=== PATIENT | female | born 1985 | race Caucasian/White ===

== ENCOUNTER 2021-11-24 13:50 | Emergency (ER) | payer OTHER, SELFPAY ==
--- NOTE | ~2021-11-24 | XR_ITS ---
EXAMINATION: XR foot RT 2V INDICATION: Right foot pain and swelling TECHNIQUE: Two views of the right foot are obtained. COMPARISON: 12/12/2009 FINDINGS: There is dorsal soft tissue swelling of the foot overlying the metatarsals. No fracture is identified. Bone alignment is normal. 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 IMPRESSION: 1. Dorsal soft tissue swelling of the foot without acute osseous abnormality. Reviewed, dictated and finalized at location A.
--- NOTE | 2021-11-24 15:02 | ED_ITS ---
HPI - Extremity Injury (Lower) General Stated Complaint: WOUND ON TOE HIGH BLOOD PRESSURE Source: patient Mode of arrival: ambulatory History of Present Illness HPI Narrative: this is a 36-year-old female with no significant past medical hi story presents with abscess of the anterior surface of her right foot with some yellow drainage has good range of motion no numbness or tingling no tracking of the wound no fever chills. MD complaint: foot injury ( abscess anterior surface of right foot) Onset (ago): week(s) Severity: moderate Related Data Allergies Allergy/AdvReac Type Severity Reaction Status Date / Time No Known Allergies Allergy Mild Unverified 07/23/06 08:50 Review of Systems Review of Systems: All systems reviewed & are unremarkable except as noted in HPI and below PMFSH Past Medical History Medical History Patient denies medical problems Exam Const: General: no acute distress Orientation/consciousness: patient oriented x3 HENMT: Head: normal to inspection Eyes: Conjunctivae: conjunctivae normal Pupils: Equal, round and reactive pupils present Neck: Neck: normal visual inspection, no lymphadenopathy and no meningeal signs Chest: Chest palpation & inspection: normal inspection of the chest Resp: Effort & Inspection: normal respiratory effort Cardio: Rate: regular rate Rhythm: regular rhythm GI: GI Palp: Yes Soft to palpation Percussion: Yes normal to percussion : General: Yes no CVA tenderness Speculum Exam - Cervix: normal appearance of the cervix Urinary Catheter: Urinary Catheter: patent and draining Back/Spine/Pelvis: Back: no CVA tenderness Skin: General skin exam: normal color Wounds: wounds noted Other: wound to anterior surface of right foot Neuro: General: patient oriented x3 and moves all extremities Extrem: General: normal to inspection Psych: Mental Status: mental status grossly normal Affect: normal affect Course Course Emergency Course: patient received IV antibiotic and IV Toradol reassessment of patient pain has improved. Labs reviewed with patient as well as x-rays. Critical Care Time Critical Care Time Critical Care Time: No Discharge Plan Discharge Clinical Impression: Abscess Patient Disposition: Home, Self-Care Condition: Stable Instructions: Antibiotic Form, Abscess (ED) Additional Instructions: take antibiotics as prescribed and follow-up with primary care physician within 1 week for further evaluation treatment. Prescriptions: New clindamycin HCl 300 mg capsule 300 mg PO Q6H Qty: 40 RF: 0 mupirocin 2 % ointment 1 applic topical TID 7 Days Qty: 15 RF: 0 tramadol [Ultram] 50 mg tablet 50 mg PO Q6H PRN (Reason: pain) Qty: 20 RF: 0 Follow-up/Referrals: UNKNOWN,DOCTOR [Primary Care Provider] - Time of Disposition: 15:13
[2021-11-24 15:15] VITALS: BP 152/96; PULSE 98; RESP 16; TEMP 36; O2SAT 99
--- NOTE | 2021-11-24 15:28 | PC.NURSE ---
Attempted IV x 2 without success. ERP aware, will change orders to IM.
[2021-11-24] MEDS: KETOROLAC (*BKC) 60 MG/2 ML VIAL IM (15:39)
[2021-11-24] MEDS: cefTRIAXone 1 GM VIAL IM (15:40)
== END 2021-11-24 16:20 | disposition home or self-care (01) ==
PROVIDERS: Emergency Provider Emergency Medicine
DX: L02.611 Cutaneous abscess of right foot (principal)
CPT/HCPCS: 73620; 96372; 99284; J0696; J1885

== ENCOUNTER 2024-12-13 19:41 | Emergency (ER) | payer OTHER, SELFPAY ==
--- OUTSIDE RECORDS SUMMARY | 2024-12-13 19:43 | XMS_ITS | Clinical Summary ---
Author Organization [facility] Address [address] [place] [address] Phone Care Team Providers Care Medical Driver Name Role Phone Unavailable Primary Care Provider Unavailabl e Social History Tobacco Use Types Packs/Day Years Used Date Smoking Tobacco: Never Assessed Comments Unknown Sex and Gender Information Value Date Recorded Sex Assigned at Not on file Legal Sex Female 10:26 PM CDT Gender Identity Not on file Sexual Orientation Not on file Plan of Treatment Health Maintenance Due Date Last Done Comments Hepatitis C Virus (HCV) Screening 1983 TdaP Immunization 1983 Hepatitis B Immunization (1 of 3 - 19+ 3-dose series) 2002 Pap Smear 01/06/2004 Cervical Cancer Screening (CCS) 2013 HPV/Cotest 2013 Discussion re Starting/Frequ ency of Mammograms 2023 Influenza Immunization (#1) 2024 SARS-COV-2 Immunization ( season) 2024 Respiratory Syncytial Virus (RSV) Immunization (Adult) (1 - 1-dose 75+ series) 2058 Meningococcal Immunization (ACWY) Aged Out No longer eligible based on patient's age to complete this topic Pneumococcal Immunization Combined Aged Out No longer eligible based on patient's age to complete this topic Rotavirus Immunization Aged Out No lo nger eligible based on patient's age to complete this topic
--- OUTSIDE RECORDS SUMMARY | 2024-12-13 19:43 | XMS_ITS | Referral Summary ---
Author Organization [facility] Virtual Care Address [address] [place] [phone] Phone Care Team Providers Care Mechanical Design Drafter Name Role Phone Jossy Valle MD Primary Care Provider Encounters Date Type Department Care Team Description 12/09/2024 8:00 AM CDT [address] [phone] from Last 3 Months Allergies Active Allergy Reactions Criticality Noted Date Comments Adhesive Tape-Silicones Codeine Iodine Nickel Rash Medium 10/18/2022 Sumatriptan Medications etonogestrel/et hinyl estradiol (NUVARING VAG) 2 Active acetaminophen (TYLENOL) 500 mg tablet Take 1 tablet (500 mg total) by mouth every 6 (six) hours as needed for pain Active ibuprofen (ADVIL,MOTRIN) 200 mg tab/cap Take by mouth every 6 (six) hours as needed for pain Active cetirizine 10 mg capsule Take by mouth 2 (two) times a day Active valsartan (DIOVAN) 40 mg tablet Take 1 tablet (40 mg total) by mouth daily 30 tablet 3 Active Additional Information Patient not taking.Reported on 04/18/2023 fluticasone propionate (FLONASE) 50 mcg/actuation nasal sprayIndication s:Acute maxillary sinusitis, recurrence not specified Administer 2 sprays into each nostril daily for 14 days 1 each 4 Active Active Problems Problem Noted Date Diagnosed Date Annual physical exam 07/19/2022 Assessment & Plan (07/19/2022 5:08 PM BACTERIOLOGIST MEDICAL): Doing well. BMI:41 ( Obese) Routine labs ordered - BMP, A1C, Lipid Preventative Screening Due: Up to date. Will request pap results Dietary and exercise recommendations given today. Recommend exercise at least 30 minutes moderate to vigorous exercise and some strength training most days of the week. (minimum 150 minutes weekly) Vaccines due - Influenza, COVID and TDAP recommended RTC annually for f/u Essential hypertension 07/19/2022 Assessment & Plan (10/18/2022 5:35 PM CDT): Chronic and ongoing. Goal < 130/80. Low-salt diet Start olmesartan 20 mg daily. Risks/benefits and alternatives discussed. Monitor blood pressure 2 to 3 times weekly for next 4 weeks and log RTC 1 month Assessment & Plan (07/19/2022 5:10 PM BACTERIOLOGIST MEDICAL): New diagnosis. Goal <130/80 - Dash diet. Handout given - Work on weight loss - Repeat and f/u in 2 weeks and will likely start medication at that appointment Ulcer of right foot 07/19/2022 Assessment & Plan (10/18/2022 5:37 PM CDT): Ulceration of skin on 2nd toe and color change of surrounding tisue. Chronic and minimal improvement from last visit 2 months ago. DDx: diabetic ulcer vs vascular insufficiency related ulcer vs Chronic infection vs pyoderma gangrenosum - Bactrim DS b.i.d. x7 days for to cover a possible bacterial infection - Labs ordered at previous visit. Patient advised to complete a sat - Will obtain plain films - Obtain LISSA R. Lower extremity - Consider vascular referral for eval if ABIs abnormal. If WNL can also consider Dermatology and /or wound care consult Assessment & Plan (07/21/2022 12:29 PM BACTERIOLOGIST MEDICAL): Ulceration of skin on 2nd toe and color change of surrounding tisue. Chronic and worsening from onset. DDx: diabetic ulcer vs vascular insufficiency related ulcer vs Chronic infection vs pyoderma gangrenosum - Labs orders - Will obtain plain films - Obtain LISSA R. Lower extremity - Consider vascular referral for eval if ABIs abnormal. If WNL can also consider Dermatology and /or wound care consult Class 3 severe obesity with serious comorbidity and body mass index (BMI) of 40.0 to 44.9 in adult 07/19/2022 Social History Tobacco Use Types Packs/Day Years Used Date Smoking Tobacco: Former Tobacco Cessation:Counseling Given: Not Answered Alcohol Use Standard Drinks/Week Comments Yes 0 (1 standard drink = 0.6 oz pur e alcohol) AUDIT-C Answer Date Recorded Q1: How often do you have a drink containing alc ohol? Monthly or less 07/19/2022 Q2: How many drinks containi ng alcohol do you have on a typical day when you are drinking? 1 or 2 07/19/2022 Q3: How often do you have si x or more drinks on one occasion? Never 07/19/2022 PHQ-2 Answer Date Recorded PHQ-2 Total Score (If total score is 3 or more points, staff should administer the PHQ-9) 0 07/19/2022 Comments Unknown Sex and Gender Information Value Date Recorded Sex Assigned at Not on file Legal Sex Female 12:29 AM BACTERIOLOGIST MEDICAL Gender Identity Female 02/13/2022 2:14 PM CDT Sexual Orientation Straight 02/13/2022 2: 14 PM CDT Last Filed Vital Signs Vital Sign Reading Time Taken Comments Blood Pressure 128/76 09/12/2023 8:42 AM BACTERIOLOGIST MEDICAL Pulse 70 09/12/2023 8:42 AM BACTERIOLOGIST MEDICAL Temperature 37 C (98.6 F) 09/12/2023 8:42 AM BACTERIOLOGIST MEDICAL Respiratory Rate 20 09/12/2023 8:42 AM BACTERIOLOGIST MEDICAL Oxygen Saturation 98% 09/12/2023 8:42 AM BACTERIOLOGIST MEDICAL Inhaled Oxygen Concentration - - Weight 77.1 kg (170 lb) 09/12/2023 8:42 AM BACTERIOLOGIST MEDICAL Height 160 cm (5' 3) 09/12/2023 8:42 AM BACTERIOLOGIST MEDICAL Body Mass Index 30.11 09/12/2023 8:42 AM BACTERIOLOGIST MEDICAL Plan of Treatment Not on file Insurance [facility] Care Teams Mechanical Design Drafter Relationship Specialty Start Date End Date Jossy Valle MD PCP - General Family Practice 07/19/22
--- OUTSIDE RECORDS SUMMARY | 2024-12-13 19:43 | XMS_ITS | Clinical Summary ---
Author Organization [facility] Virtual Care Address [address] [place] [phone] Phone Care Team Providers Care Energy Conservation Specialist Name Role Phone Jossy Valle MD Primary Care Provider Allergies Active Allergy Reactions Criticality Noted Date [...] 07/19/2022 Assessment & Plan (07/19/2022 5:08 PM PROSTHETICS LAB TECHNICIAN): Doing well. BMI:41 ( Obese) Routine labs [...] month Assessment & Plan (07/19/2022 5:10 PM PROSTHETICS LAB TECHNICIAN): New diagnosis. Goal <130/80 - Dash diet. [...] consult Assessment & Plan (07/21/2022 12:29 PM PROSTHETICS LAB TECHNICIAN): Ulceration of skin on 2nd toe and [...] of 40.0 to 44.9 in adult 07/19/2022 Encounters Date Type Department Care Team Description 12/09/2024 8:00 AM CDT Lab [address] [phone] from Last 3 Months Medical History Medical History Date Comments Seizure disorder (HCC) Seizure d isorder Social History Tobacco Use Types Packs/Day Years [...] on file Legal Sex Female 12:29 AM PROSTHETICS LAB TECHNICIAN Gender Identity Female 02/13/2022 2:14 PM CDT Sexual Orientation Straight 02/13/2022 2: 14 PM CDT Obstetrics History Last Filed Vital Signs Vital Sign Reading Time Taken Comments Blood Pressure 128/76 09/12/2023 8:42 AM PROSTHETICS LAB TECHNICIAN Pulse 70 09/12/2023 8:42 AM PROSTHETICS LAB TECHNICIAN Temperature 37 C (98.6 F) 09/12/2023 8:42 AM PROSTHETICS LAB TECHNICIAN Respiratory Rate 20 09/12/2023 8:42 AM PROSTHETICS LAB TECHNICIAN Oxygen Saturation 98% 09/12/2023 8:42 AM PROSTHETICS LAB TECHNICIAN Inhaled Oxygen Concentration - - Weight 77.1 kg (170 lb) 09/12/2023 8:42 AM PROSTHETICS LAB TECHNICIAN Height 160 cm (5' 3) 09/12/2023 8:42 AM PROSTHETICS LAB TECHNICIAN Body Mass Index 30.11 09/12/2023 8:42 AM PROSTHETICS LAB TECHNICIAN Plan of Treatment Health Maintenance Due Date Last Done Comments Breast Cancer Screening-Mammogram 1983 Cervical Cancer Screening 1983 Hepatitis C Screening 1983 DTaP/Tdap/Td Vaccine (1 - Tdap) 1994 Varicella Vaccines (1 of 2 - 13+ 2-dose series) 01/06/1996 Hepatitis B Screening 2001 Depression Screening 07/19/2023 07/19/2022 Regular Well Visit/Exam 18-64 07/19/2023 07/19/2022 Covid-19 Vaccine (4 - 2023-2 5 season) 2024 07/14/2021, 11/04/2020, 10/14/2020 Influenza Vaccine (Season Ended) 2025 HPV Vaccines Aged Out No longer eligi ble based on patient's age to complete this topic Pneumococcal vaccine <65 Aged Out No longer eligible based on patient's age to complete this topic Insurance [facility] Care Teams Energy Conservation Specialist Relationship Specialty Start Date End Date Jossy Valle MD PCP - General Family Practice 07/19/22
[2024-12-13 21:26] VITALS: BP 175/90; PULSE 114; RESP 15; TEMP 36.8; O2SAT 98
--- OUTSIDE RECORDS SUMMARY | 2024-12-13 21:27 | XMS_ITS | Clinical Summary ---
Author Organization [facility] Virtual Care Address [address] [place] [phone] Phone Care Team Providers Care Impression Printer Name Role Phone Jossy Valle MD Primary [...] 07/19/2022 Assessment & Plan (07/19/2022 5:08 PM LIQUOR COMMISSIONER): Doing well. BMI:41 ( Obese) Routine labs [...] month Assessment & Plan (07/19/2022 5:10 PM LIQUOR COMMISSIONER): New diagnosis. Goal <130/80 - Dash diet. [...] consult Assessment & Plan (07/21/2022 12:29 PM LIQUOR COMMISSIONER): Ulceration of skin on 2nd toe and [...] Team Description 12/09/2024 8:00 AM CDT Lab [address] [phone] from Last 3 Months Medical History Medical [...] on file Legal Sex Female 12:29 AM LIQUOR COMMISSIONER Gender Identity Female 02/13/2022 2:14 PM CDT Sexual Orientation Straight 02/13/2022 2: 14 PM CDT Obstetrics History Last Filed Vital Signs Vital Sign Reading Time Taken Comments Blood Pressure 128/76 09/12/2023 8:42 AM LIQUOR COMMISSIONER Pulse 70 09/12/2023 8:42 AM LIQUOR COMMISSIONER Temperature 37 C (98.6 F) 09/12/2023 8:42 AM LIQUOR COMMISSIONER Respiratory Rate 20 09/12/2023 8:42 AM LIQUOR COMMISSIONER Oxygen Saturation 98% 09/12/2023 8:42 AM LIQUOR COMMISSIONER Inhaled Oxygen Concentration - - Weight 77.1 kg (170 lb) 09/12/2023 8:42 AM LIQUOR COMMISSIONER Height 160 cm (5' 3) 09/12/2023 8:42 AM LIQUOR COMMISSIONER Body Mass Index 30.11 09/12/2023 8:42 AM LIQUOR COMMISSIONER Plan of Treatment Health Maintenance Due Date [...] patient's age to complete this topic Insurance [facility] Care Teams Impression Printer Relationship Specialty Start Date End Date Jossy Valle MD PCP - General Family Practice 07/19/22
--- OUTSIDE RECORDS SUMMARY | 2024-12-13 21:27 | XMS_ITS | Clinical Summary ---
Author Organization [facility] Address [address] [place] [address] Phone Care Team Providers Care Builder Beam Name Role Phone Unavailable Primary Care Provider [...]
--- OUTSIDE RECORDS SUMMARY | 2024-12-13 21:27 | XMS_ITS | Referral Summary ---
Author Organization [facility] Virtual Care Address [address] [place] [phone] Phone Care Team Providers Care Police Service Technician Name Role Phone Jossy Valle MD Primary Care Provider Encounters Date Type Department Care Team Description 12/09/2024 8:00 AM CDT [address] [phone] from Last 3 Months Allergies Active Allergy [...] 07/19/2022 Assessment & Plan (07/19/2022 5:08 PM PHOTO PRODUCER): Doing well. BMI:41 ( Obese) Routine labs [...] month Assessment & Plan (07/19/2022 5:10 PM PHOTO PRODUCER): New diagnosis. Goal <130/80 - Dash diet. [...] consult Assessment & Plan (07/21/2022 12:29 PM PHOTO PRODUCER): Ulceration of skin on 2nd toe and [...] on file Legal Sex Female 12:29 AM PHOTO PRODUCER Gender Identity Female 02/13/2022 2:14 PM CDT Sexual Orientation Straight 02/13/2022 2: 14 PM CDT Last Filed Vital Signs Vital Sign Reading Time Taken Comments Blood Pressure 128/76 09/12/2023 8:42 AM PHOTO PRODUCER Pulse 70 09/12/2023 8:42 AM PHOTO PRODUCER Temperature 37 C (98.6 F) 09/12/2023 8:42 AM PHOTO PRODUCER Respiratory Rate 20 09/12/2023 8:42 AM PHOTO PRODUCER Oxygen Saturation 98% 09/12/2023 8:42 AM PHOTO PRODUCER Inhaled Oxygen Concentration - - Weight 77.1 kg (170 lb) 09/12/2023 8:42 AM PHOTO PRODUCER Height 160 cm (5' 3) 09/12/2023 8:42 AM PHOTO PRODUCER Body Mass Index 30.11 09/12/2023 8:42 AM PHOTO PRODUCER Plan of Treatment Not on file Insurance [facility] Care Teams Police Service Technician Relationship Specialty Start Date End Date Jossy Valle MD PCP - General Family Practice 07/19/22
[2024-12-13] MEDS: LIDOCAINE 1% LOCAL INJ 10 ML VIAL INFILTRATE (21:52)
[2024-12-13] MEDS: TETANUS,DIPHTHERIA,AC PERTUSSIS ADULT 0.5 ML (ADACEL) IM (21:54)
[2024-12-13 22:05] VITALS: BP 174/91; PULSE 102; RESP 18; TEMP 36.7; O2SAT 98
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
== END 2024-12-13 22:37 | disposition home or self-care (01) ==
PROVIDERS: Emergency Provider Emergency Medicine; PCP Internal Medicine
DX: S01.81XA Laceration without foreign body of other part of head, initial encounter (principal); V89.0XXA Person injured in unspecified motor-vehicle accident, nontraffic, initial encounter; Z23 Encounter for immunization
CPT/HCPCS: 12011; 90471; 90715; 99283; J2003